=== PATIENT | female | born 1955 | race Caucasian/White ===

== ENCOUNTER 2017-12-27 12:13 | Observation (INO) ==
[2017-12-27] MEDS ORDERED: Isovue-370 500 ML INFUS..BTL IV ONE (12:53)
--- NOTE | 2017-12-27 12:59 | Emergency Department Note ---
Disposition Clinical Impression: Right hand paresthesia, Right facial numbness Vertebral artery stenosis Qualifiers: Laterality: right Qualified Code(s): I65.01 - Occlusion and stenosis of right vertebral artery Disposition: Admitted As Inpatient Referrals: NONE,PCP [Primary Care Provider] - Forms: ED Satisfaction Letter General Adult HPI - General Chief complaint: ED Neuro Symptoms/Deficit Stated complaint: Tingling Right arm x's 3 wks Time Seen by Provider: 12/27/17 12:40 Source: patient Limitations: no limitations - History of Present Illness Pain Scale: 0 - Related Data Home Medications Medication Instructions Recorded Confirmed No Known Home Drugs 12/26/14 12/26/14 Allergies Allergy/AdvReac Type Severity Reaction Status Date / Time No Known Allergies Allergy Verified 12/26/14 08:26 Past Medical History - Past Medical History Medical history: Reports: cancer, hypertension Psychiatric history: Reports: no psych history - Social History Smoking Status: Never smoker Smokeless Tobacco Status: No Alcohol use: Reports: none Drug use: Reports: none Physical Exam - General Limitations: no limitations General appearance: alert Course Vital Signs Temperature 98.2 F 12/27/17 12:20 Pulse Rate 58 12/27/17 12:20 Respiratory Rate 18 12/27/17 12:20 Blood Pressure 153/91 12/27/17 12:20 O2 Sat by Pulse Oximetry 98 12/27/17 12:20 Temperature 98.2 F 12/27/17 12:20 Pulse Rate 58 12/27/17 12:20 Respiratory Rate 18 12/27/17 12:20 Blood Pressure 153/91 12/27/17 12:20 O2 Sat by Pulse Oximetry 98 12/27/17 12:20 Oxygen Delivery Oxygen Delivery Room Air Medical Decision Making - MDM Narrative Medical decision making narrative: CTA shows verterbral artery stenosis. consult with Neuro who prefers to admit pt will give asa needs further imaging per neuro - Medical Records Medical records reviewed: Yes I reviewed the patient's medical records. - Lab Data Lab results reviewed: Yes I reviewed the patient's lab results. Result diagrams: 12/27/17 13:09 Lab Results 12/27/17 Range/Units 13:09 Sodium 140 (136-145) mEq/L Potassium 3.8 (3.5-5.1) mEq/L Chloride 104 (98-107) mEq/L Carbon Dioxide 29 (23-29) mEq/L BUN 13 (8-23) mg/dL Creatinine 0.66 (0.60-1.20) mg/dL Est GFR ( Amer) > 60 (> 60) Est GFR (Non-Af Amer) > 60 (> 60) BUN/Creatinine Ratio 20 (6-26) Glucose 110 H (70-105) mg/dL Calculated Osmolality 291 (280-300) Calcium 9.7 (8.6-10.3) mg/dL - Radiology Data Radiology results reviewed: Yes I reviewed the patient's radiology results. Attestation Statement - Attestation Attestation: I examined this patient and my medical decision-making was reviewed with the Resident Physician. I agree with the documented findings, disposition and treatment plan as described except to the extent set forth below. 62-year-old female presents emergency room for some numbness involving the right side of her face and right arm. She denies any motor weakness. Has been intermittent 3 weeks. Been more constant the past 24 hours. He numbness involves the right side of her face and cheek specifically around the crack in the mouth on the right side as well as the right tongue as well as the right hand and fingers. This is concerning for possible TIA/CVA symptoms. She has no vision changes. Again no motor weakness. No leg involvement. She does have a history of breast cancer. Plan at this time is to do a CT of the head as well as a CTA of the head and neck
--- NOTE | 2017-12-27 12:59 | Emergency Department Note ---
Disposition Clinical Impression: Right hand paresthesia, Right facial numbness Vertebral artery stenosis Qualifiers: Laterality: right Qualified Code(s): I65.01 - Occlusion and stenosis of right vertebral artery Disposition: Admitted As Inpatient Condition: Good Referrals: NONE,PCP [Primary Care Provider] - Forms: ED Satisfaction Letter Time of Disposition: 15:46 Neuro HPI - General Chief Complaint: ED Neuro Symptoms/Deficit Stated Complaint: Tingling Right arm x's 3 wks Time Seen by Provider: 12/27/17 12:40 Source: patient Mode of arrival: ambulatory Limitations: no limitations Nursing Notes Reviewed: Yes Vital Signs Reviewed: Yes - History of Present Illness HPI Narrative: Patient is a 62-year-old female with past medical history of breast cancer, currently in remission for the past 3 years and currently takes Letrazole daily. She also has a history of hypertension and takes amlodipine 5 mg daily. She states that she has been having tingling in her right shoulder, right hand, right any face (cheek and right lips, right tongue) for the past 3 weeks intermittently. However, for the past 24 hours, the symptoms have been constant. Denies any focal weaknesses, loss of vision, chest pain, shortness breath, nausea, vomiting, fevers, diarrhea, abdominal pain, dysuria, hematuria. Denies any history of strokes. She does note that she has been under a lot of recent financial and social stress. She also notes that she had some tingling with this in the past prior to her cancer diagnosis. - Related Data Home Medications: Home Medications Medication Instructions Recorded Confirmed No Known Home Drugs 12/26/14 12/26/14 Allergies/Adverse Reactions: Allergies Allergy/AdvReac Type Severity Reaction Status Date / Time No Known Allergies Allergy Verified 12/26/14 08:26 All systems ED: reviewed and negative except as stated. Constitutional: Denies: fever Cardiovascular: Denies: chest pain Gastrointestinal: Denies: abdominal pain, nausea, vomiting, diarrhea Genitourinary: Denies: urgency, dysuria Integumentary: Denies: rash Neurological: Reports: paresthesias. Denies: headache, weakness, numbness Past Medical History - Past Medical History Attestation: Yes The following information was validated with the patient. Source: patient Medical history: Reports: cancer, hypertension Psychiatric history: Reports: no psych history - Social History Smoking Status: Never smoker Smokeless Tobacco Status: No Alcohol use: Reports: none Drug use: Reports: none Physical Exam - General Limitations: no limitations General appearance: alert - Head Head exam: atraumatic, normocephalic, normal inspection - Eye Eye exam: Present: normal appearance, PERRL, EOMI - ENT ENT exam: normal exam, normal oropharynx, mucous membranes moist - Neck Neck exam: Present: normal inspection, full ROM, trachea midline - Chest Chest inspection: Present: normal inspection, symmetric chest wall rise - Respiratory Respiratory exam: Present: normal lung sounds bilaterally - Cardiovascular Cardiovascular exam: Present: regular rate, normal rhythm, normal heart sounds - Abdominal Exam Abdominal exam: Present: soft, Non-Tender. Absent: tenderness, distention, guarding, rebound, rigidity - Extremities Exam Extremities exam: Present: normal inspection, full ROM. Absent: tenderness, pedal edema - Neurological Exam Neurological exam: Present: alert, oriented X3, CN II-XII intact. Absent: motor sensory deficit - Expanded Neurological Exam Patient oriented to: Present: person, place, time Speech: Present: fluid speech Cranial nerves: EOM function (II, III, IV, ): Normal, facial sensation (V): Normal, facial palsy (VII): Normal, spinal accessory function (XI): Normal, tongue deviation (XII): Normal Cerebellar function: finger to nose: Normal Motor strength - LUE: 5/5 Motor strength - RUE: 5/5 Motor strength - LLE: 5/5 Motor strength - RLE: 5/5 Sensory exam upper extremity: light touch: Normal Sensory exam lower extremity: light touch: Normal Coma Scale Eye Opening: Spontaneous Coma Scale Motor Response: Obeys Commands Coma Scale Verbal Response: Oriented Coma Scale Total: 15 - Psychiatric Psychiatric exam: Present: normal affect, normal mood - Skin Skin exam: Present: warm, dry, intact, normal color Course Course Narrative: With right sided symptoms of tingling, will perform CTA of the head and neck for further eval. NIH currently 0. Will perform BMP for renal function prior to testing 15:28 CT came back with moderate stenosis at the origin of the right vertebral artery. Otherwise, no other acute process noted. I spoke with Dr. Price with neurology about the read and patient's presentation, physical exam findings. He did not recommend any current intervention. He did recommend giving the patient aspirin, he did also recommend admitting the patient for further TIA/stroke workup with MRI of the head and neck and Dopplers. He states that he will act as a consult for the patient. Consult has been placed. This was discussed with the patient and she was agreeable with this plan. Angiography CT 12/27/17 12:53 IMPRESSION: 1. Moderate stenosis at the origin of the right vertebral artery. 2. Otherwise, unremarkable CTA of the head and neck. D/ / 12/27/2017 15:21:51 Brooklyn Pelaez MD / nara Interpreting Provider: Brooklyn Pelaez MD Neck CTA 12/27/17 12:53 IMPRESSION: 1. Moderate stenosis at the origin of the right vertebral artery. 2. Otherwise, unremarkable CTA of the head and neck. D/ / 12/27/2017 15:21:51 Brooklyn Pelaez MD / nara Interpreting Provider: Brooklyn Pelaez MD Vital Signs Temperature 98.2 F 12/27/17 12:20 Pulse Rate 58 12/27/17 12:20 Respiratory Rate 18 12/27/17 12:20 Blood Pressure 153/91 12/27/17 12:20 O2 Sat by Pulse Oximetry 98 12/27/17 12:20 Temperature 98.2 F 12/27/17 12:20 Pulse Rate 58 12/27/17 12:20 Respiratory Rate 18 12/27/17 12:20 Blood Pressure 153/91 12/27/17 12:20 O2 Sat by Pulse Oximetry 98 12/27/17 12:20 Oxygen Delivery Oxygen Delivery Room Air Neuro Symptoms/Deficit - MDM Narrative Medical decision making narrative: With right sided symptoms of tingling, will perform CTA of the head and neck for further eval. NIH currently 0. Will perform BMP for renal function prior to testing 15:28 CT came back with moderate stenosis at the origin of the right vertebral artery. Otherwise, no other acute process noted. I spoke with Dr. Price with neurology about the read and patient's presentation, physical exam findings. He did not recommend any current intervention. He did recommend giving the patient aspirin, he did also recommend admitting the patient for further TIA/stroke workup with MRI of the head and neck and Dopplers. He states that he will act as a consult for the patient. Consult has been placed. This was discussed with the patient and she was agreeable with this plan. - Medical Records Medical records reviewed: Yes I reviewed the patient's medical records. - Lab Data Result diagrams: 12/27/17 13:09 Lab Results 12/27/17 Range/Units 13:09 Sodium 140 (136-145) mEq/L Potassium 3.8 (3.5-5.1) mEq/L Chloride 104 (98-107) mEq/L Carbon Dioxide 29 (23-29) mEq/L BUN 13 (8-23) mg/dL Creatinine 0.66 (0.60-1.20) mg/dL Est GFR ( Amer) > 60 (> 60) Est GFR (Non-Af Amer) > 60 (> 60) BUN/Creatinine Ratio 20 (6-26) Glucose 110 H (70-105) mg/dL Calculated Osmolality 291 (280-300) Calcium 9.7 (8.6-10.3) mg/dL - Radiology Data Radiology results reviewed: Yes I reviewed the patient's radiology results. Angiography CT 12/27/17 12:53 IMPRESSION: 1. Moderate stenosis at the origin of the right vertebral artery. 2. Otherwise, unremarkable CTA of the head and neck. D/ / 12/27/2017 15:21:51 Brooklyn Pelaez MD / nara Interpreting Provider: Brooklyn Pelaez MD Neck CTA 12/27/17 12:53 IMPRESSION: 1. Moderate stenosis at the origin of the right vertebral artery. 2. Otherwise, unremarkable CTA of the head and neck. D/ / 12/27/2017 15:21:51 Brooklyn Pelaez MD / nara Interpreting Provider: Brooklyn Pelaez MD NIH Stroke Scale - Level of Consciousness LOC: Alert - LOC Questions LOC Questions: Answers both correctly - LOC Commands LOC Commands: Performs both correctly - Best Gaze Best Gaze: Normal - Visual Visual: No visual loss - Facial Palsy Facial Palsy: Normal - Motor Arms Motor Arm-Left: No drift for 10 seconds Motor Arm-Right: No drift for 10 seconds - Motor Legs Motor Leg-Left: No drift for 5 seconds Motor Leg-Right: No drift for 5 seconds - Limb Ataxia Limb Ataxia: Absent of affected limb too weak to perform exam - Sensory Sensory: Normal - Best Language Best Language: No aphasia - Dysarthria Dysarthria: Normal - Extinction and Inattention Extinction and Inattention: Normal - NIHSS Total Score NIHSS Total Score: 0 TPA Checklist - LKW: 3-4.5 hrs Add. Warnings/Precautions Patient/family understanding: The patient/family members have been counseled and understood the risk, benefit, and alternatives of treatment. S.B.A.R. - S.B.A.Raphael. Situation: Demographics, MOA Background: Presenting Complaint, Relevant PMH, Meds, & Allergies Assessment: Vital Signs, Course and respsone to treatment, Exam Concerns, Patient/Family Expectation, Pertinant Lab Results, Outstanding Labs Recommendation: Barrier(s) to disposition, Recommendation based on pending studies, treatments, or consults S.B.A.R. Report Given to: Dr. Soto
[2017-12-27 13:48] LABS: BUN/Creatinine Ratio 20 (6-26); Blood Urea Nitrogen 13 mg/dL (8-23); Carbon Dioxide 29 mEq/L (23-29); Chloride 104 mEq/L (98-107); Glucose 110 mg/dL (70-105); Potassium 3.8 mEq/L (3.5-5.1); Sodium 140 mEq/L (136-145); eGFR For Non-African Americans > 60 (> 60)
[2017-12-27 13:49] LABS: Calcium 9.7 mg/dL (8.6-10.3); Osmolality,Calculated 291 (280-300)
[2017-12-27] MEDS ORDERED: Aspirin 325 MG TABLET PO ONE (15:37)
[2017-12-27 17:23] LABS: Basophils % 0.6 %; Eosinophils # 0.1 K/mcL (0.0-0.6); Eosinophils % 1.9 %; Hematocrit 41.2 % (35.3-44.9); Hemoglobin 13.1 g/dL (11.5-15.4); Immature Granulocytes % 0.1 % (0-4); Lymphocytes % 14.3 %; Mean Corpuscular HGB Conc 31.8 g/dL (31.6-35.5); Mean Corpuscular Hemoglobin 25.9 pg (28.0-33.3); Mean Corpuscular Volume 81.6 fL (83.0-100.0); Mean Platelet Volume 10.9 fL (9.4-12.4); Monocytes # 0.4 K/mcL (0.0-1.3); Monocytes % 5.8 %; Neutrophils # 5.2 K/mcL (1.6-8.9); Platelet Count 163 K/mcL (140-400); Red Blood Count 5.05 M/mcL (3.82-4.97); Red Cell Distribution Width 13.2 % (11.5-14.5); Segmented Neutrophils % 77.3 %
[2017-12-27] MEDS ORDERED: Acetaminophen 325 MG TABLET PO PRN (17:33)
[2017-12-27] MEDS ORDERED: traMADol 50 MG TABLET PO PRN (17:33)
[2017-12-27] MEDS ORDERED: Naloxone 0.4 MG/ML INJ IVP PRN (17:33)
--- NOTE | 2017-12-27 17:59 | Internal Med History&Physical ---
Date of Encounter: 12/27/17 Time of Encounter: 16:30 Internal Medicine - H&P: HPI Chief complaint: Right-sided weakness/Right facial paresthesia Admitted From: Emergency Dept Plans for Post Hospital Care: Home History of present illness: Ms. Villegas is a 62 year old female w/PMH of HTN and breast cancer of the right breast which resulted in double mastectomy w/chemo/radiation txs (Pt. now on PO Letrozole) presents from the ED w/CC of right shoulder aching, tingling in right hand and right side of mouth, and right periorbital pain intermittently for the past 3 weeks. Pt. also reports pain across forehead. States she had similar sx 5 years ago that were not as bad. Pt. also reports that her BP has been higher than normal for the past several days. Takes Norvasc for HTN. No alleviating or aggravating factors. Patient denies recent illness, fever, chills, nausea, vomiting, changes in vision, unusual bleeding, chest pain, shortness of breath, cough, chest congestion, abdominal pain, diarrhea, constipation, dizziness, lightheadedness, pre-syncope, or syncope. 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 Double mastectomy), hypertension Additional medical history: breast (rt arm lymph) Psychiatric history: no psych history - Past Surgical History Surgical History: breast surgery (Double mastectomy) Additional surgical history: masectomy - Social History Smoking Status: Never smoker Smokeless Tobacco Status: No Alcohol use: none Drug use: none Current living situation: Home, With Family Activity Level: Independent ambulation Recent Out of Country Travel Within the Last 8 Weeks: No Exposure or Possible Exposure to Illness During Travel: No - Family History Father Race: Family Member Ethnicity: Non- Living Status: Still Living Hx Family Musculoskeletal Disorders: Yes (Arthritis) Mother Race: Family Member Ethnicity: Non- Living Status: Age at : 62 Cause of : Brain aneurysm Hx Family Cardiac Disorders: Yes (Aneurysm) Hx Family Neurologic Disorders: Yes (Brain aneurysm) Brother Race: Family Member Ethnicity: Non- Living Status: Age at : 47 Cause of : [place] Hx Family Cardiac Disorders: Yes ([place], HTN) Internal Medicine - H&P: Meds Biotin 5,000 mcg PO QAM 12/27/17 [History] Calcium Carbonate [Calcium] 600 mg PO BID 12/27/17 [History] Cholecalciferol (D-3) [Vitamin D] 5,000 unit PO QAM 12/27/17 [History] Letrozole [Femara] 2.5 mg PO QAM 12/27/17 [History] amLODIPine [Norvasc] 5 mg PO QAM 12/27/17 [History] Allergy/AdvReac Type Severity Reaction Status Date / Time latex AdvReac Hives Verified 12/27/17 16:17 All Systems PM: A 10-system review of systems was performed and is negative for pertinent findings except as documented above in the HPI. - Constitutional Constitutional: as per HPI, no chills, no fever(s), no night sweats - EENT Eyes: no change in vision, no discharge, no pain, no photophobia Ears: no ear discharge, no ear pain, no tinnitus Nose, mouth and throat: no dysphagia, no nasal discharge, no neck pain, no sore throat - Breasts Breasts: as per HPI - Cardiovascular Cardiovascular ROS IM: no chest pain, no diaphoresis, no dyspnea, no lightheadedness, no palpitations, no syncope - Respiratory Respiratory: no cough, no dyspnea, no wheezing, no excessive phlegm production - Gastrointestinal Gastrointestinal: no abdominal pain, no diarrhea, no hematemesis, no hematochezia, no melena, no nausea, no vomiting - Genitourinary Genitourinary: no change in urinary stream, no dysuria, no flank pain, no hematuria Menstruation: as per HPI - Musculoskeletal Musculoskeletal ROS IM: as per HPI, numbness, tingling - Integumentary Integumentary IM: no rash, no unusual bruising - Neurological Neurological ROS: as per HPI, numbness, paresthesias, tingling, no confusion, no convulsions, no focal weakness, no tremor(s) - Psychiatric Psychiatric: as per HPI - Endocrine Endocrine IM: as per HPI - Hematologic/Lymphatic Hematologic/Lymphatic: no easy bruising - Allergic/Immunologic Allergic/Immunologic: as per HPI - Constitutional Vitals: Temp Pulse Resp BP Pulse Ox 97.8 F 73 16 130/84 97 12/27/17 17:44 12/27/17 17:44 12/27/17 17:44 12/27/17 17:44 12/27/17 17:44 General appearance: Present: cooperative, A&O X 3, pleasant, no acute distress, obese, answers questions appropriately Exam: Patient examined at bedside in ED. Reports numbness and tingling in right hand and right mouth intermittently. Denies CP, SOB, headache, changes in vision, or other complaints at this time. Pt. reports she is a single mother of child w/Down syndrome and does have stressors in her life. Describes familial hx of CVA, DC, and brain aneurysm. VS: 97.4F temp, HR 73, RR 16, BP 130/84, SPO2 97% on room air. - Head Head exam: Present: atraumatic, normocephalic - Eye Eye exam: Present: PERRL, conjuntiva pink, sclera anicteric Pupils: Present: PERRL - ENT ENT exam: Present: normal exam - Neck Neck exam general surgery: Present: normal inspection, supple, trachea midline. Absent: lymphadenopathy - Respiratory Respiratory exam: Present: CTAB. Absent: accessory muscle use, rales, rhonchi, wheezes - Cardiovascular Cardiovascular exam: Present: RRR, +S1, +S2. Absent: diastolic murmur, gallop, rubs, systolic murmur - GI/Abdominal GI/Abdominal exam: Present: normal bowel sounds, soft, no peritoneal signs. Absent: distended, tenderness - Rectal Rectal exam: Present: deferred - Additional comments: exam deferred. - Extremities Exam Extremities exam: Present: warm, radial pulses palpable and symmetrical. Absent: calf tenderness, cyanotic, pedal edema - Back Exam Back exam: Present: normal inspection - Neurological Exam Neurological exam: Present: alert, CN II-XII intact, oriented X3, no focal deficits. Absent: pronater drift, facial droop, speech deficit - Psychiatric Psychiatric exam: Present: normal affect, normal mood - Skin Skin exam: Present: dry, intact Internal Med - H&P Results - Labs CBC & Chem 7: 12/27/17 13:09 12/27/17 13:09 Labs: Short CBC 12/27/17 Range/Units 13:09 WBC 6.7 (4.3-11.1) K/mcL Hgb 13.1 (11.5-15.4) g/dL Hct 41.2 (35.3-44.9) % Plt Count 163 (140-400) K/mcL Neutrophils # 5.2 (1.6-8.9) K/mcL BMP 12/27/17 13:09 Sodium 140 Potassium 3.8 Chloride 104 Carbon Dioxide 29 BUN 13 Creatinine 0.66 Glucose 110 H Calcium 9.7 - Impressions ITS Impressions Angiography CT 12/27/17 12:53 IMPRESSION: 1. Moderate stenosis at the origin of the right vertebral artery. 2. Otherwise, unremarkable CTA of the head and neck. D/ / 12/27/2017 15:21:51 Brooklyn Pelaez MD / nara Interpreting Provider: Brooklyn Pelaez MD Neck CTA 12/27/17 12:53 IMPRESSION: 1. Moderate stenosis at the origin of the right vertebral artery. 2. Otherwise, unremarkable CTA of the head and neck. D/ 12/27/2017 15:21:51 Brooklyn Pelaez MD / nara Interpreting Provider: Brooklyn Pelaez MD - Diagnostic Studies Other Images Additional comments: Impressions Angiography CT 12/27/17 12:53 IMPRESSION: 1. Moderate stenosis at the origin of the right vertebral artery. 2. Otherwise, unremarkable CTA of the head and neck. D/ / 12/27/2017 15:21:51 MD Hardik Silva Interpreting Provider: Brooklyn Pelaez MD Neck CTA 12/27/17 12:53 IMPRESSION: 1. Moderate stenosis at the origin of the right vertebral artery. 2. Otherwise, unremarkable CTA of the head and neck. D/ / 12/27/2017 15:21:51 MD Hardik Silva Interpreting Provider: Brooklyn Pelaez MD - Assessment and plan (1) Vertebral artery stenosis Current Visit: Yes Status: Acute Assessment and plan: Acute vertebral artery stenosis. CTA of the neck today shows moderate stenosis a t the origin of the right vertebral artery and otherwise unremarkable CT of the head and neck. Consider Vascular consult based on Neurology recommendations if warranted. Acute on chronic sx that pt. reports have been intermittent for the past three weeks include right hand paresthesia and tingling/numbness of the right side of the mouth. Pt. also reports periorbital pain of right eye and pain across forehead for the past several days. Similar sx approx 5 years ago w/no dx. Pt. reports sx as transient. No focal deficits, pronator drift, facial droop, or slurred speech on exam. Strengths equal bilaterally in UEs and LEs. Continuous cardiac telemetry. NIHSS modified scale. Neuro checks Q2HR. Padding to bed rails. Falls precautions and up with assist. MRI of the head/brain ordered. Permissive HTN until MRI resulted. Bilateral SCDs for now for DVT prophylaxis. Dysphagia screen and NPO until passed. EEG. ASA. Neurology consult ordered and discussed w/Dr. Price and I appreciate the consult and recommendations as always. Pt. is high risk for further mobidity and neurologic changes based on current sx, presence of sx 5 years ago; familial hx of CVAs (Aunts), brain aneurysm (Mother), DC <age 50 (Brother at age 47); increasing HTN. Observation. Qualifiers: Laterality: right Qualified Code(s): I65.01 - Occlusion and stenosis of right vertebral artery (2) Right facial numbness Current Visit: Yes Status: Acute Assessment and plan: Acute on chronic right facial paresthesia that has been intermittent for the past three weeks. Pt. reports numbness/tingling to corner of right side of mouth. Similar sx approx 5 years ago w/no dx. Pt. reports sx as transient. No focal deficits, pronator drift, facial droop, or slurred speech on exam. Strengths equal bilaterally in UEs and LEs. Continuous cardiac telemetry. NIHSS modified scale. Neuro checks Q2HR. Padding to bed rails. Falls precautions and up with assist. MRI of the head/brain ordered. Permissive HTN until MRI resulted. Bilateral SCDs for now for DVT prophylaxis. Dysphagia screen and NPO until passed. EEG. ASA. Neurology consult ordered and discussed w/Dr. Price and I appreciate the consult and recommendations as always. (3) Right hand paresthesia Current Visit: Yes Status: Acute Assessment and plan: Acute on chronic right hand paresthesia that has been intermittent for the past three weeks. Similar sx approx 5 years ago w/no dx. Pt. reports sx as transient. No focal deficits, pronator drift, facial droop, or slurred speech on exam. Strengths equal bilaterally in UEs and LEs. Continuous cardiac telemetry. NIHSS modified scale. Neuro checks Q2HR. Padding to bed rails. Falls precautions and up with assist. MRI of the head/brain ordered. Permissive HTN until MRI resulted. Bilateral SCDs for now for DVT prophylaxis. Dysphagia screen and NPO until passed. EEG. ASA. Neurology consult ordered and discussed w/Dr. Price and I appreciate the consult and recommendations as always. (4) HTN (hypertension) Current Visit: Yes Status: Chronic Assessment and plan: Hx of chronic HTN. Will hold pts. Norvasc for now to allow for permissive HTN until MRI resulted. Communication order placed to notify provider if SBP >180. 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 three years ago. Pt. reports 10/13 lumph nodes were positive, so pt. opted for double mastectomy. Will continue pts. PO Letrozole. F/u w/Oncology as OP as scheduled. Qualifiers: Estrogen receptor status: unspecified Qualified Code(s): C50.211 - Maligna nt neoplasm of upper-inner quadrant of right female breast (6) DVT prophylaxis Current Visit: Yes Status: Acute Assessment and plan: Bilateral SCDs on LEs for DVT prophylaxis until MRI of head/brain resulted. If MRI unremarkable, will change to heparin SQ. - Time Spent With Patient Total time spent is greater than 50% in coordination of care (as documented) at patient's floor/unit and/or counseling patient: Greater than 35 minutes
[2017-12-28 00:55] LABS: Alanine Aminotransferase 14 Units/L (7-52); Albumin 3.8 g/dL (3.5-5.7); Albumin/Globulin Ratio 1.3 (1.1-2.2); Alkaline Phosphatase 96 Units/L (34-104); Aspartate Amino Transferase 12 Units/L (13-39); BUN/Creatinine Ratio 20 (6-26); Bilirubin,Total 0.4 mg/dL (0.3-1.0); Blood Urea Nitrogen 15 mg/dL (8-23); Calcium 9.3 mg/dL (8.6-10.3); Carbon Dioxide 27 mEq/L (23-29); Chloride 103 mEq/L (98-107); Cholesterol 161 mg/dL (< 200); Globulin 2.9 g/dL (2.4-3.5); Glucose 105 mg/dL (70-105); HDL Cholesterol 54 mg/dL (40-59); LDL Cholesterol,Calculated 84 mg/dL (0-99); Magnesium 1.9 mg/dL (1.6-2.6); Osmolality,Calculated 291 (280-300); Potassium 3.8 mEq/L (3.5-5.1); Sodium 140 mEq/L (136-145); Total Protein 6.7 g/dL (6.4-8.9); Triglycerides 115 mg/dL (< 150); eGFR For Non-African Americans > 60 (> 60)
[2017-12-28 00:58] LABS: Basophils % 0.5 %; Eosinophils # 0.2 K/mcL (0.0-0.6); Eosinophils % 2.6 %; Hemoglobin 13.2 g/dL (11.5-15.4); Immature Granulocytes % 0.2 % (0-4); Lymphocytes # 1.9 K/mcL (0.6-4.6); Lymphocytes % 22.2 %; Mean Corpuscular HGB Conc 32.2 g/dL (31.6-35.5); Mean Corpuscular Hemoglobin 25.8 pg (28.0-33.3); Mean Corpuscular Volume 80.2 fL (83.0-100.0); Mean Platelet Volume 10.7 fL (9.4-12.4); Monocytes # 0.5 K/mcL (0.0-1.3); Neutrophils # 5.8 K/mcL (1.6-8.9); Platelet Count 167 K/mcL (140-400); Red Blood Count 5.11 M/mcL (3.82-4.97); Red Cell Distribution Width 13.2 % (11.5-14.5); Segmented Neutrophils % 68.5 %
[2017-12-28 06:44] LABS: Estimated Average Glucose 117 mg/dl; Hemoglobin A1C 5.7 %
[2017-12-28 07:19] VITALS: BP 118/77
--- NOTE | 2017-12-28 07:31 | Neurology - Consult Note ---
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 Current Visit: Yes Status: Resolved Qualifiers: Estrogen receptor status: unspecified Qualified Code(s): C50.211 - Malignant neoplasm of upper-inner quadrant of right female breast (2) Vertebral artery stenosis Current Visit: Yes Status: Acute Qualifiers: Laterality: right Qualified Code(s): I65.01 - Occlusion and stenosis of right vertebral artery (3) Right hand paresthesia Current Visit: Yes Status: Acute (4) Right facial numbness Current Visit: Yes Status: Acute (5) HTN (hypertension) Current Visit: Yes Status: Chronic Qualifiers: Hypertension type: essential hypertension Qualified Code(s): I10 - Essential (primary) hypertension (6) DVT prophylaxis Current Visit: Yes Status: Acute History of Present Illness HPI: Ms. 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 Double mastectomy), hypertension Additional medical history: breast (rt arm lymph) Psychiatric history: no psych history - Past Surgical History Surgical History: breast surgery (Double mastectomy) Additional surgical history: masectomy - Social History Smoking Status: Never smoker Smokeless Tobacco Status: No Alcohol use: none Drug use: none - Family History Father Race: Family Member Ethnicity: Non- Living Status: Still Living Hx Family Musculoskeletal Disorders: Yes (Arthritis) Mother Race: Family Member Ethnicity: Non- Living Status: Age at : 62 Cause of : Brain aneurysm Hx Family Cardiac Disorders: Yes (Aneurysm) Hx Family Neurologic Disorders: Yes (Brain aneurysm) Brother Race: Family Member Ethnicity: Non- Living Status: Age at : 47 Cause of : [place] Hx Family Cardiac Disorders: Yes ([place], HTN) Medications and Allergies Biotin 5,000 mcg PO QAM 12/27/17 [History] Calcium Carbonate [Calcium] 600 mg PO BID 12/27/17 [History] Cholecalciferol (D-3) [Vitamin D] 5,000 unit PO QAM 12/27/17 [History] Letrozole [Femara] 2.5 mg PO QAM 12/27/17 [History] amLODIPine [Norvasc] 5 mg PO QAM 12/27/17 [History] Aspirin Enteric Coated [Aspirin EC] 81 mg PO DAILY tablet. 12/28/17 [Rx] Loratadine/Pseudophed (12 HR) [Claritin D (12HR)] 1 each PO BID PRN #20 tab.er.12h 12/28/17 [Rx] Allergy/AdvReac Type Severity Reaction Status Date / Time latex AdvReac Hives Verified 12/27/17 16:17 All Systems: The remainder of the systems were reviewed and are negative Physical Examination - Vital Signs Vital Signs: Initial Vital Signs Temp Pulse Resp BP Pulse Ox 98.2 F 58 18 153/91 98 12/27/17 12:20 12/27/17 12:20 12/27/17 12:20 12/27/17 12:20 12/27/17 12:20 Results - Laboratory Findings CBC and BMP: 12/28/17 00:15 12/28/17 00:15 Abnormal lab findings: Abnormal lab results RBC 5.11 M/mcL (3.82-4.97) H 12/28/17 00:15 MCV 80.2 fL (83.0-100.0) L 12/28/17 00:15 MCH 25.8 pg (28.0-33.3) L 12/28/17 00:15 Hemoglobin A1c 5.7 % (-5.6) H 12/28/17 00:15 AST 12 Units/L (13-39) L 12/28/17 00:15 Consult Discharge Plan - Plan Instructions: Aspirin (By mouth), Loratadine/Pseudoephedrine (By mouth), Transient Ischemic Attack (DC) Referrals: NONE,PCP [Primary Care Provider] - (Patient's PCP is Angella Kaur in [place]. She currentlly has appointment to follow up on January 01 at 1100.) Prescriptions: Loratadine/Pseudophed (12 HR) [Claritin D (12HR)] 1 each PO BID PRN #20 tab.er.12h PRN Reason: Allergic Symptoms <Smith Price - Last Filed: 12/28/17 10:14> Date of Encounter: 12/28/17 Time of Encounter: 10:06 Assessment and Plan (1) Right hand paresthesia Current Visit: Yes Status: Acute Liliana's neurologic examination, as well as the MRI scan of the brain were both negative. The stenosis of the vertebral artery is not clinically relevant. Quite frequently 1 vertebral artery may be stenotic are smaller than the other. It seems that she is under quite a bit of emotional stress and has several challenging situations that she has been confronted with here recently. I would simply have her follow up with her primary care provider. You may discharge her at your discretion. History of Present Illness HPI: Ms. Villegas is a 62 year old female who was seen for neurologic consultation as a result of paresthesias of the right face and right arm occurring intermittently for about 3 weeks now. She also complained of some numbness and pain in the right shoulder. In addition there was some soreness involving the right thigh and tingling of the corner of the right side of the mouth. Symptoms were occurring randomly and might persist for minutes or hours. She also admits to family as well as other financial stressors. All Systems: The remainder of the systems were reviewed and are negative Review of Systems: Balance of the systems review is negative. Physical Examination - Vital Signs Vital Signs: Initial Vital Signs Temp Pulse Resp BP Pulse Ox 98.2 F 58 18 153/91 98 12/27/17 12:20 12/27/17 12:20 12/27/17 12:20 12/27/17 12:20 12/27/17 12:20 - Neurologic Detailed motor examination: full strength in all major muscle groups Motor examination - right side: 5/5: deltoids, biceps, triceps, wrist flexion, wrist extension, cigar head puncher, hip flexors, tibialis Anterior, quadriceps, toe extension (EHL), plantarflexion Motor examination - left side: 5/5: deltoids, biceps, triceps, wrist flexion, wrist extension, hip flexors, cigar head puncher, quadriceps, tibialis Anterior, toe extension (EHL), plantarflexion Mental Status Examination: awake, alert, oriented to person, oriented to place, oriented to time, follows commands appropriately, answers questions appro priately, no agnosia, no aphasia, no aproxia Cranial nerve examination: PERRL, EOMI, visual florence intact, corneal reflexes brisk symmetrically, sensory to face intact, mastication intact, no facial asymmetry is present, no dysarthria, hearing is intact symmetrically, soft p alate elevates bilaterally upon phonation, gag reflex intact, flexes SCM and trapezius muscles symmetrically with full power, tongue protrudes midline, no atrophy or facial fasiculations present Cerebellar examination: no dysmetria, performs finger to nose and heel to carrasco s ymmetrically without ataxia, no gait ataxia, no truncal ataxia, no difficulty with rapid alternating movements Results - Laboratory Findings CBC and BMP: 12/28/17 00:15 12/28/17 00:15 Abnormal lab findings: Abnormal lab results RBC 5.11 M/mcL (3.82-4.97) H 12/28/17 00:15 MCV 80.2 fL (83.0-100.0) L 12/28/17 00:15 MCH 25.8 pg (28.0-33.3) L 12/28/17 00:15 Hemoglobin A1c 5.7 % (-5.6) H 12/28/17 00:15 AST 12 Units/L (13-39) L 12/28/17 00:15
--- NOTE | 2017-12-28 08:59 | Discharge Summary ---
- NOTES TO OUTPATIENT PROVIDER Notes to Outpatient Provider: f/u with PCP in one week. If you persistently have Rt UE pain, numbness and tingling please follow up with your PCP , you may need further work up to rule out any cervical radiculopathy symptoms Orders not resulted at time of discharge: Pending orders 12/29/17 04:00 Complete Blood Count [HEME] AM 0400 Comprehensive Metabolic Panel AM 0400 12/30/17 04:00 Complete Blood Count [HEME] AM 0400 Comprehensive Metabolic Panel AM 0400 Date of Encounter: 12/28/17 Time of Encounter: 08:56 - Discharge Diagnosis (1) TIA (transient ischemic attack) Priority: Primary Status: Acute (2) Right hand paresthesia Priority: Primary Status: Acute (3) 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 Priority: Secondary Status: Resolved Qualifiers: Estrogen receptor status: unspecified Qualified Code(s): C50.211 - Malignant neoplasm of upper-inner quadrant of right female breast (4) Vertebral artery stenosis Priority: Secondary Status: Acute Qualifiers: Laterality: right Qualified Code(s): I65.01 - Occlusion and stenosis of right vertebral artery (5) Right facial numbness Priority: Primary Status: Acute (6) HTN (hypertension) Priority: Secondary Status: Chronic Qualifiers: Hypertension type: essential hypertension Qualified Code(s): I10 - Essential (primary) hypertension (7) DVT prophylaxis Priority: Secondary Status: Acute Hospital course: Ms. Villegas is a 62 year old female w/PMH of HTN and breast cancer of the right breast which resulted in double mastectomy w/chemo/radiation txs (Pt. now on PO Letrozole) presented to ED w/CC of right shoulder aching, tingling in right hand and right side of mouth, and right periorbital pain intermittently for the past 3 weeks. Pt. also reports pain across forehead. She was admitted in the hospital and placed her on athletic monitor. Her CT of the neck and head showed moderate stenosis at the origin of the right vertebral artery. Brain MRI came back is negative for any infarctions. Patient symptoms resolved completely today. Her Rt arm parasthesia symptoms probably TIA vs Anxiety related. She still have some periorbital tingling aching sensation with nasal congestion, which seems to be most likely allergic sinusitis. So recommended patient to take Claritin as needed. - Time Spent with Patient Total time spent providing and/or coordinating discharge services: - Discharge Medications Prescriptions: Loratadine/Pseudophed (12 HR) [Claritin D (12HR)] 1 each PO BID PRN #20 tab.er.12h PRN Reason: Allergic Symptoms Home Medications: Biotin 5,000 mcg PO QAM 12/27/17 [History] Calcium Carbonate [Calcium] 600 mg PO BID 12/27/17 [History] Cholecalciferol (D-3) [Vitamin D] 5,000 unit PO QAM 12/27/17 [History] Letrozole [Femara] 2.5 mg PO QAM 12/27/17 [History] amLODIPine [Norvasc] 5 mg PO QAM 12/27/17 [History] Aspirin Enteric Coated [Aspirin EC] 81 mg PO DAILY tablet. 12/28/17 [Rx] Loratadine/Pseudophed (12 HR) [Claritin D (12HR)] 1 each PO BID PRN #20 tab.er.12h 12/28/17 [Rx] Allergies/Adverse Reactions: Allergy/AdvReac Type Severity Reaction Status Date / Time latex AdvReac Hives Verified 12/27/17 16:17 Date of admission: 12/27/17 16:17 Primary care physician: PCP NONE Consults: 12/27/17 15:35 Consult to Neurology [CONS] Stat Consulting Provider: [facility] Reason for Consult: Dr. Price - right sided facial and arm tingling; CT showing moderate stenosis right vertebral artery Time Notified: 15:35 Call Completed: Yes 12/27/17 17:35 Consult to [employer] [CONS] Routine Reason for SW Consult: Please assess patient for possible home needs for post-discharge planning. - Constitutional Vitals: Temp Pulse Resp BP Pulse Ox 97.9 F 77 14 118/77 96 12/28/17 07:18 12/28/17 07:18 12/28/17 07:18 12/28/17 07:18 12/28/17 07:18 General appearance: Present: cooperative, A&O X 3, pleasant, no acute distress, obese, answers questions appropriately Exam: aa - Head Head exam: Present: atraumatic, normal inspection - Neck Neck exam general surgery: Present: supple - Respiratory Respiratory exam: Present: CTAB. Absent: rales, rhonchi, wheezes, tachypnea - Cardiovascular Cardiovascular exam: Present: RRR, +S1, +S2. Absent: tachycardia - GI/Abdominal GI/Abdominal exam: Present: soft. Absent: rebound, rigid, tenderness - Extremities Exam Extremities exam: Absent: calf tenderness, pedal edema, tenderness - Back Exam Back exam: Absent: CVA tenderness (L), CVA tenderness (R) - Neurological Exam Neurological exam: Present: alert, CN II-XII intact, oriented X3, reflexes normal, no focal deficits, strengths equal and symetr throughout. Absent: facial droop, speech deficit - Psychiatric Psychiatric exam: Present: normal affect, normal mood - Patient Status Disposition: Home, Self-Care Condition: Good - Discharge Instructions Follow Up With: NONE,PCP [Primary Care Provider] - - Diet and Activity Activity: increase activity as tolerated Diet: low fat, low cholesterol
[2017-12-28] MEDS ORDERED: amLODIPine 5 MG TABLET PO SCH (09:00)
[2017-12-28] MEDS ORDERED: Aspirin Enteric Coated 81 MG Tablet PO SCH (09:00)
[2017-12-28] MEDS ORDERED: (Biotin [Biotin] 5,000 MCG) PO SCH (09:00)
[2017-12-28] MEDS ORDERED: Cholecalciferol (D-3) 1,000 UNIT TABLET PO SCH (09:00)
[2017-12-28] MEDS ORDERED: Letrozole 2.5 MG TABLET PO SCH (09:00)
--- NOTE | 2017-12-30 21:33 | Electrocardiograph Report ---
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
== END 2017-12-28 10:04 | disposition home or self-care (01) ==
LOC: 3BNU 12:13 → EMEROOARM 12:13 → SUATTDRO 16:17 → 3BNU 16:30
PROVIDERS: ADMIT Hospitalist; ATTEND Family Medicine